=== PATIENT | male | born 2000 | race Caucasian/White ===

== ENCOUNTER 2019-11-06 07:23 | Outpatient (REF) | payer BC, SELFPAY ==
[2019-11-06 11:57] LABS: Estmated Average Glucose 114; Hemoglobin A1C 5.6 % (4.0-6.0)
[2019-11-06 12:10] LABS: Alanine Aminotransferase 19 U/L (0-41); Albumin Level 4.7 g/dL (3.5-5.2); Alkaline Phosphatase 84 IU/L (40-130); Aspartate Amino Transferase 19 U/L (0-40); Blood Urea Nitrogen 15 mg/dL (6-20); Carbon Dioxide 27 mmol/L (22-29); Chloride 104 mmol/L (98-107); Chol HDL Ratio 4.68 mg/dL (1.0-5.00); Cholesterol 173 mg/dL (0-200); Globulin 3.6 g/dL (1.3-4.6); Glomerular Filtration Rate 171.8 mL/min (90-130); Glucose 82 mg/dL (65-115); HDL Cholesterol 37 mg/dL (60-100); LDL Cholesterol Calculated 115 mg/dL (50-129); LDL HDL Ratio 3.11 RATIO (0.00-3.22); Sodium 142 mmol/L (136-145); Thyroid Stimulating Hormone 1.07 uIU/mL (0.27-4.20); Total Bilirubin 0.3 mg/dL (0.15-1.2); Total Protein 8.3 g/dL (6.6-8.7); Triglycerides 105 mg/dL (0-150)
[2019-11-06 23:26] LABS: 25 Hydroxy Vitamin D 17 ng/mL (30-100)
[2019-11-07 03:04] LABS: Basophils % 0.3 %; Eosinophils # 0.2 10^3/uL (0.0-0.8); Eosinophils % 3.3 %; Hematocrit 50.6 % (42.0-52.0); Hemoglobin 16.1 g/dL (11.7-16.6); Lymphocytes # 2.3 10^3/uL (1.5-6.5); Lymphocytes % 33.5 %; Mean Corpuscular HGB Conc 31.8 g/dL (30.0-36.0); Mean Corpuscular Hemoglobin 28.9 pg (28.0-34.0); Mean Corpuscular Volume 90.8 fL (80-94); Mean Platelet Volume 12.1 fL (7.4-10.4); Monocytes # 0.7 10^3/uL (0.2-0.9); Monocytes % 9.9 %; Neutrophils # 3.6 10^3/uL (1.8-8.0); Neutrophils % 52.9 %; Nucleated Red Blood Cells % 0 %; Platelet Count 240 10^3/cmm (130-400); Red Blood Count 5.57 10^6/uL (4.1-5.3); Red Cell Distribution Width 12.6 % (12.1-15.1); White Blood Count 6.9 10^3/uL (4.5-13.0)
== END 2019-11-06 07:24 | disposition home or self-care (01) ==
LOC: LAB 07:23
PROVIDERS: Family Provider Family Medicine; PCP Family Medicine; Visit Provider Dermatology
DX: Z01.89 Encounter for other specified special examinations (principal)
CPT/HCPCS: 80053; 80061; 82306; 83036; 84443; 85025

== ENCOUNTER → 2020-07-26 07:58 | Outpatient (BNVA) | payer BC, SELFPAY | PROVIDERS: Family Provider Family Medicine; PCP Family Medicine; Referring Provider Family Medicine; Visit Provider Internal Medicine | DX: R63.5 Abnormal weight gain (principal); R79.89 Other specified abnormal findings of blood chemistry; S06.9X9A Unspecified intracranial injury with loss of consciousness of unspecified duration, initial encounter; Z87.820 Personal history of traumatic brain injury | CPT/HCPCS: 99204 ==

== ENCOUNTER → 2020-08-19 09:54 | Outpatient (BNVA) | payer BC, SELFPAY | PROVIDERS: Family Provider Family Medicine; PCP Family Medicine; Visit Provider Internal Medicine | DX: R63.5 Abnormal weight gain (principal); R79.89 Other specified abnormal findings of blood chemistry; Z87.820 Personal history of traumatic brain injury | CPT/HCPCS: 99213 ==

== ENCOUNTER 2020-12-23 07:08 | Emergency (ER) | payer BC, SELFPAY ==
[2020-12-23 07:19] VITALS: BP 127/66; PULSE 75; RESP 16; TEMP 36.5; O2SAT 98; BMI 33.3
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
--- NOTE | 2020-12-23 07:36 | XR_ITS ---
WS: [id number] Exam: XR cervical spine 3V* [id number] Date/Time of Exam: 12/23/2020 7:40 AM Reason For Exam: neck pain and inury No acute fracture or dislocation. There is straightening. The odontoid is intact. Paraspinal soft tis sues appear normal. XR/XR cervical spine 3V* [id number] IMPRESSION: 1. Straightening of the C-spine. No fracture or malalignment.
[2020-12-23] MEDS: ketorolac 60 mg/2 mL INJ IM (07:40)
[2020-12-23 08:34] VITALS: RESP 16; TEMP 36.5; O2SAT 98
== END 2020-12-23 08:34 | disposition home or self-care (01) ==
PROVIDERS: Emergency Provider Physician Assistant; PCP Family Medicine
DX: S16.1XXA Strain of muscle, fascia and tendon at neck level, initial encounter (principal); X50.0XXA Overexertion from strenuous movement or load, initial encounter
CPT/HCPCS: 72040; 96372; 99283; J1885